=== PATIENT | male | born 1955 | race Caucasian/White ===

== ENCOUNTER 2016-05-22 12:38 | Emergency (ER) | payer BC ==
[2016-05-22 12:51] VITALS: BP 128/57
--- NOTE | 2016-05-22 14:13 | EDM.PDOC ---
ED HPI Trauma - General Chief Complaint: Lower Extremity Injury/Pain Stated Complaint: RT LEG SWELLING Time Seen by Provider: 05/22/16 12:52 Source: Reports: Patient, RN notes reviewed - History of Present Illness INITIAL COMMENTS - FREE TEXT/NARRATIVE: 6-year-old male comes in with right leg swelling. He's had this for the last few days. He does have history of fracture of the lower leg many years ago. He states it "healed crooked" so he then needed to have it "rebroken and a metal ana was inserted. Since that time the leg does swell intermittently but this has been worse than usual and more prolonged than usual. Unfortunately he also does have metastatic prostate cancer diagnosed a few years ago. He states that this is metastatic to nodes in his pelvis and also metastatic to bone. He visited with one of his specialty providers about the leg problem and was advised to come in for ultrasound the leg to rule out DVT. The leg has not been red or hot. He has no chest pain or difficulty breathing Allergies/ADRs: Allergies gabapentin [From Neurontin] Allergy (Verified 05/22/16 12:51) Other Home Medications: Ambulatory Orders Amino Ac/Whey Prot Con & Isol [Whey Protein Powder] 1 dose PO DAILY 05/22/16 [ Confirmed 05/22/16] Calcium Carb &Cit/Magnesium Ox [Calmag Thins Tablet] 1 each PO DAILY 05/22/16 [ Confirmed 05/22/16] Cholecalciferol (Vitamin D3) [Vitamin D3] 2,000 unit PO DAILY 05/22/16 [ Confirmed 05/22/16] Epamax 1 tab PO DAILY 05/22/16 [Confirmed 05/22/16] Fish Oil/Baring-3 Fatty Acids [Fish Oil] 1 each PO DAILY 05/22/16 [Confirmed 09/02] Flaxseed 2 tsp PO DAILY 05/22/16 [Confirmed 05/22/16] [place] 2 cap PO DAILY 05/22/16 [Confirmed 05/22/16] Melatonin 20 mg PO BEDTIME 05/22/16 [Confirmed 05/22/16] Ubidecarenone [Coq-10] 100 mg PO DAILY 05/22/16 [Confirmed 05/22/16] Vitamin B Complex [B Complex] 1 each PO DAILY 05/22/16 [Confirmed 05/22/16] Past Medical History HEENT History: Reports: Cataract Genitourinary History: Reports: Prostate disorder Immunologic History: Reports: Other (see below) Other Immunologic History: receives chemotherapy Oncologic (Cancer) History: Reports: Prostate - Past Surgical History HEENT Surgical History: Reports: Cataract surgery GI Surgical History: Reports: Hernia repair/other Male Surgical History: Reports: Prostate Biopsy, Other (see below) Other Male Surgeries/Procedures: prostate cancer treatment Social & Family History - Family History Family Medical History: Noncontributory - Tobacco Use Smoking Status *Q: Never Smoker - Caffeine Use Caffeine Use: Reports: None - Recreational Drug Use Recreational Drug Use: No Review of Systems - Review of Systems Review Of Systems: See Below Constitutional: Denies: chills, fever Eyes: Reports: no symptoms Mouth/Throat: Reports: no symptoms Respiratory: Denies: shortness of breath, pleuritic chest pain Cardiovascular: Reports: edema (right lower leg). Denies: chest pain, syncope GI/Abdominal: Denies: Nausea, Vomiting Musculoskeletal: Denies: leg pain Skin: Reports: no symptoms Neurological: Reports: no symptoms Trauma Exam - Physical Exam Exam: See Below General Appearance: Reports: alert, no apparent distress Head: Reports: atraumatic Throat/Mouth: Reports: Normal inspection, Normal oropharynx Neck: Reports: full range of motion Respiratory Exam: Reports: no respiratory distress, lungs clear, normal breath sounds Cardiovascular: Reports: regular rate, rhythm Extremities: Reports: pedal edema (mild to moderate edema of the right lower leg ), other (no warmth or erythema of the lower leg). Denies: bony-point tenderness, tenderness Skin: Reports: Normal color, Warm/dry Course - Vital Signs Last Recorded V/S: Last Vital Signs Temp 96.4 F 05/22/16 12:46 Pulse 53 L 05/22/16 12:46 Resp 18 05/22/16 12:46 BP 128/57 L 05/22/16 12:46 Pulse Ox 100 05/22/16 12:46 - Orders/Labs/Meds Orders: Active Orders 24 hr Category Date Time Status VL Duplex Lwr Ext Veins Ltd Rt [US] Stat Exams 05/22/16 13:10 Taken - Re-Assessments/Exams Free Text/Narrative Re-Assessment/Exam: 05/22/16 14:28 ultrasound the leg is negative for DVT Departure - Departure Time of Disposition: 14:11 Disposition: Home, Self-Care 01 Condition: fair Clinical Impression: Leg edema Qualifiers: Laterality: right Qualified Code(s): R60.0 - Localized edema Instructions: Edema, [id number] Referrals: Kelly Brody PA [Primary Care Provider] - Forms: ED Department Discharge Additional Instructions: The ultrasound of your leg today does not show any evidence for blood clot. elevates her legs as much as possible when not walking. Work your calf muscle as demonstrated every couple of hours while awake to help pump the fluid out of your leg toward your pelvis. See a medical provider immediately if you do start experiencing warmth, redness, pain or worsening swelling of your distal leg. - My Orders Last 24 Hours: My Active Orders 05/22/16 13:10 VL Duplex Lwr Ext Veins Ltd Rt [US] Stat - Assessment/Plan Last 24 Hours: My Active Orders 05/22/16 13:10 VL Duplex Lwr Ext Veins Ltd Rt [US] Stat
--- NOTE | 2016-05-22 14:42 | US ---
Right lower extremity deep venous ultrasound: Duplex and color flow imaging was obtained of the right common femoral, proximal greater saphenous, superficial femoral, popliteal, posterior tibial and peroneal veins. Findings: Subcutaneous edema seen within the calf. Normal phasic flow, augmentation and compression are seen. Evaluation of the left common femoral vein was also performed which appears patent. Impression: 1. Mild subcutaneous edema within the calf. 2. No evidence of deep venous thrombosis within the right lower extremity or within the left common femoral vein. Diagnostic code #2
== END 2016-05-22 14:24 | disposition home or self-care (01) ==
LOC: JD.ED 12:38
DX: R60.0 Localized edema (principal); Z88.8 Allergy status to other drugs, medicaments and biological substances; Z98.49 Cataract extraction status, unspecified eye
CPT/HCPCS: 93971-26-RT; 93971-RT; 99282; 99284-25

== ENCOUNTER 2017-01-21 03:42 | Emergency (ER) | payer BC ==
[2017-01-21 03:54] VITALS: BP 112/76
[2017-01-21] MEDS ORDERED: Acetaminophen/oxyCODONE 325-5 MG Tab PO ONE (04:09)
--- NOTE | 2017-01-21 04:10 | EDM.PDOC ---
ED HPI GENERAL MEDICAL PROBLEM - General Chief Complaint: Back Pain or Injury Stated Complaint: BACK PAIN Time Seen by Provider: 01/21/17 03:48 Source of Information: Reports: Patient History Limitations: Reports: No Limitations - History of Present Illness INITIAL COMMENTS - FREE TEXT/NARRATIVE: This is a 61-year-old male. He has a history of stage IV prostate cancer. Earlier this year he had some bone metastases to the spine and had severe spine pain requiring some Decadron as well as some radiation treatment. He noted on Sunday evening he started having some upper back pain in the thoracic spine and upper back. It is a constant pain that does not seem to change with movement. He thinks he might have this same process going on again. He is to follow-up with his doctor on Sunday already and possibly start chemotherapy this week. He is already on prednisone 5 mg a day. I spoke to him at length and indicated that x-rays probably won't tell us anything and if he wants to know for sure if there is a spot in his bone that might be pressing on a spine that he needs to get an MRI which is not available through the ER. We talked at length regarding what needs to be done in the future and he is opted to just get something for pain until he can see his doctor on Sunday. He'll allow his doctor to do the workup for this lower thoracic pain. Middle Back Pain Score (Numeric/FACES): 7 - Related Data Allergies Allergy/AdvReac Type Severity Reaction Status Date / Time gabapentin [From Neurontin] Allergy Other Verified 01/21/17 03:54 Home Meds: Home Meds oxyCODONE HCl/Acetaminophen [Percocet 5-325 mg Tablet] 1 - 2 each PO Q6H PRN # 12 tablet 01/21/17 [Rx] predniSONE [Prednisone] 5 mg PO DAILY 01/21/17 [History] Past Medical History HEENT History: Reports: Cataract Genitourinary History: Reports: Prostate Disorder Immunologic History: Reports: Other (See Below) Other Immunologic History: receives chemotherapy Oncologic (Cancer) History: Reports: Prostate - Past Surgical History HEENT Surgical History: Reports: Cataract Surgery GI Surgical History: Reports: Hernia Repair/Other Male Surgical History: Reports: Prostate Biopsy, Other (See Below) Social & Family History - Family History Family Medical History: Noncontributory - Tobacco Use Smoking Status *Q: Never Smoker - Caffeine Use Caffeine Use: Reports: None - Recreational Drug Use Recreational Drug Use: No ED ROS GENERAL - Review of Systems Review Of Systems: See Below Constitutional: Denies: Fever, Chills HEENT: Reports: No Symptoms Respiratory: Reports: No Symptoms Cardiovascular: Reports: No Symptoms Endocrine: Reports: No Symptoms GI/Abdominal: Reports: No Symptoms : Reports: Other (As per history of present illness) Musculoskeletal: Reports: Back Pain Skin: Reports: No Symptoms Neurological: Reports: No Symptoms Psychiatric: Reports: No Symptoms Hematologic/Lymphatic: Reports: No Symptoms ED EXAM, UPPER BACK/NECK PAIN - Physical Exam Exam: See Below Exam Limited By: No Limitations General Appearance: Alert, WD/WN, No Apparent Distress Eye Exam: Bilateral Eye: Normal Inspection Ears Exam: Normal External Exam Nose Exam: Normal Inspection Throat/Mouth Exam: Normal Lips, Normal Voice, No Airway Compromise Head Exam: Normocephalic Neck Exam: Non-Tender, Full Range of Motion Cardiovascular/Respiratory: No Respiratory Distress Back Exam: Other (Palpation of the lower thoracic midline spine is nontender, he does have some mild paraspinal muscle soreness noted on the right but is not really the pain that he seems to be experiencing, he does have good motion of his back with twisting as well as bending, no obvious abnormalities noted of his thoracic area) Extremities: Normal Inspection, Normal Range of Motion Neurologic: Alert, Normal Mood/Affect, Oriented x 3 Psychiatric: Normal Affect, Normal Mood Skin Exam: Normal Color, Warm/Dry Course - Vital Signs Last Recorded V/S: Last Vital Signs Temp 98.5 F 01/21/17 03:48 Pulse 82 01/21/17 03:48 Resp 18 01/21/17 03:48 BP 112/76 01/21/17 03:48 Pulse Ox 100 01/21/17 03:48 - Re-Assessments/Exams Free Text/Narrative Re-Assessment/Exam: 01/21/17 04:08 We have opted just to go with some pain medicine until he can follow-up with his family doctor and his specialist on Sunday. Departure - Departure Time of Disposition: 04:10 Disposition: Home, Self-Care 01 Condition: Fair Clinical Impression: Thoracic spine pain, Prostate cancer - Discharge Information Prescriptions: oxyCODONE HCl/Acetaminophen [Percocet 5-325 mg Tablet] 1 - 2 each PO Q6H PRN # 12 tablet PRN Reason: Pain Referrals: Kelly Brody PA [Primary Care Provider] - Additional Instructions: Follow-up with your specialist on Sunday as scheduled, take the Percocet as needed for pain and your back, have them evaluate your back and see if you need another MRI to determine was going on with your pain, return to the ER if needed
== END 2017-01-21 04:26 | disposition home or self-care (01) ==
LOC: JD.ED 03:42
DX: M54.6 Pain in thoracic spine (principal); C61 Malignant neoplasm of prostate; Z88.8 Allergy status to other drugs, medicaments and biological substances; Z79.899 Other long term (current) drug therapy
CPT/HCPCS: 99283; A9270

== ENCOUNTER 2017-03-20 19:41 | Observation (INO) | payer BC ==
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
[2017-03-20] MEDS ORDERED: Potassium Chloride 20 MEQ Tab.ER PO ONE (21:35)
[2017-03-20] MEDS ORDERED: Ondansetron 4 MG Tab.DIS PO ONE (21:36)
[2017-03-20] MEDS ORDERED: NS + KCl 20mEq/L 1,000 ML IV SCH (23:45)
[2017-03-20] MEDS ORDERED: Temazepam 15 MG Cap PO PRN (23:58)
[2017-03-20] MEDS ORDERED: Ondansetron 4 MG Tab.DIS PO PRN (23:58)
[2017-03-20] MEDS ORDERED: Acetaminophen 325 MG Tab PO PRN (23:58)
[2017-03-21] MEDS ORDERED: Magnesium Sulfate/Water 2 GM in Premix Bag 1 BAG IV ONE (00:11)
[2017-03-21] MEDS: Potassium Chloride 20 MEQ Tab.ER PO SCH ×2 (00:57→09:43)
[2017-03-21] MEDS ORDERED: Ondansetron 4 MG Tab.DIS PO PRN (06:33)
[2017-03-21] MEDS ORDERED: traMADol 50 MG Tab PO SCH (06:45)
[2017-03-21] MEDS ORDERED: traMADol 50 MG Tab PO PRN (07:49)
[2017-03-21] MEDS ORDERED: [UNRECOGNIZED DRUG - OTHER] PO SCH (09:00)
[2017-03-21] MEDS ORDERED: CALCIUM CARB PO SCH (09:00)
[2017-03-21] MEDS ORDERED: Enoxaparin 40 MG/0.4 ML Syringe SUBCUT SCH (09:00)
[2017-03-21] MEDS ORDERED: [UNRECOGNIZED DRUG - OTHER] PO SCH (09:00)
[2017-03-21] MEDS ORDERED: COENZYME Q PO SCH (09:00)
--- NOTE | 2017-03-21 09:15 | CR ---
Chest: Two views of the chest were obtained. Comparison: No previous chest x-ray, previous chest CT of 05/25/10 is available. Heart size and mediastinum are within normal limits. Lungs are clear. Bony structures appear within normal limits for the patient's age. Impression: 1. Nothing acute is identified on two-view chest x-ray. Diagnostic code #1
[2017-03-21] MEDS: Atropine/Diphenoxylate 0.025-2.5 MG Tab PO SCH ×2 (11:04→12:46)
[2017-03-21] MEDS ORDERED: Potassium Chloride 20 MEQ Tab.ER PO ONE (12:00)
[2017-03-21 12:09] VITALS: BP 90/49
--- NOTE | 2017-03-21 14:44 | PCM.DCSUM1 ---
Discharge Summary - Hospital Course Free Text/Narrative:: The patient has a history of stage IV prostate cancer, originally diagnosed in May 2010. He is status post numerous chemotherapy regimens, administered at the [facility] in [place], [place]. He states that his most recent treatment was a dose of Opdivo this past , 03/15/2017. The patient states that he had an episode of nausea and emesis, along with chills, on 03/16/2017. He states that he developed chills this afternoon. He went to bed, bundled up in his jacket, and slept. When he woke, he checked his temperature, and found it to be 108. After he on-blanket it, he rechecked his temperature and found it to be 101.8, around 19:30. He denies having a recent cough, chest pain, palpitations, or dyspnea. He states that he did have some dysuria today. He had been experiencing watery diarrhea for the past 3 or 4 weeks, along with the feeling of the need to have a bowel movement, and decreased appetite. He reports having a dry mouth since July 2016. No prior similar symptoms. The patient did not take an antipyretic. Here in the ED, his temperature is found to be 99.3, and he states that he feels slightly chilled. The patient's PCP is Kelly Brody. - Discharge Data Discharge Date: 03/21/17 (admit date 03/20/16) Discharge Disposition: Home, Self-Care 01 Condition: Good - Discharge Diagnosis/Problem(s) (1) Hypokalemia SNOMED Code(s): 77865588 ICD Code: E87.6 - HYPOKALEMIA Status: Acute Priority: High Current Visit: Yes (2) Diarrhea SNOMED Code(s): 13810787 ICD Code: R19.7 - DIARRHEA, UNSPECIFIED Status: Acute Priority: High Current Visit: Yes Qualifiers: Diarrhea type: unspecified type Qualified Code(s): R19.7 - Diarrhea, unspecified (3) Prostate cancer SNOMED Code(s): 643302441 ICD Code: C61 - MALIGNANT NEOPLASM OF PROSTATE Status: Chronic Priority: Medium Current Visit: No - Patient Summary/Data Operative Procedure(s) Performed: None Complications: None Consults: None Labs Pending at D/C: None Recommended Follow-up Testing/Procedures: Recheck labs- potassium and magnesium on 03/22/16-- with results to PCP, Kelly Samples Lomotil if needed for diarrhea Recommend increase potassium for 2-3 days, take twice daily then back to once daily. Push fluids Follow up with PCP, Kelly Samples or SARTHAK Middleton early next week for recheck. Planned Operative Procedure(s) after DC: None Hospital Course: Patient was admitted for hypokalemia assoicated with frequent diarrhea stools last evening from ED. He has metastatic prostate cancer - Patient Instructions Diet: Usual Diet as Tolerated, Drink 8-10+ Glasses/Day Activity: As Tolerated Showering/Bathing: May Shower Notify Provider of: Fever, Increased Pain, Nausea and/or Vomiting - Discharge Plan Home Medications: Home Meds Atropine/Diphenoxylate [Lomotil 0.025-2.5 MG] 1 tab PO QID 03/20/17 [History] Calcium Carb/Magnesium Cmb #10 [Kiran-Mag] 2 each PO BID 03/20/17 [History] Cholecalciferol (Vitamin D3) [Vitamin D3] 2,000 unit PO DAILY 03/20/17 [History] Nivloumab 1 dose IV ASDIRECTED 03/20/17 [History] Ondansetron [Zofran ODT] 4 mg PO Q8H PRN 03/20/17 [History] Potassium Chloride [Klor-Con M20] 20 meq PO DAILY 03/20/17 [History] Prostate Care 2 tab PO BID 03/20/17 [History] Ubidecarenone [Coq-10] 1 cap PO DAILY 03/20/17 [History] traMADol [Ultram] 50 mg PO Q6H 03/20/17 [History] Patient Handouts: Diarrhea, Adult, Hypokalemia Referrals: Hayley Billy NP [ED Midlevel Provider] - 03/28/17 9:00 am (Please follow-up with Dr. Hayley Billy on Sunday, March 28 at 900am. ) - Discharge Summary/Plan Comment DC Time >30 min.: Yes (40 min) - General Info Date of Service: 03/21/17 Admission Dx/Problem (Free Text: Hypokalemia; diarrhea Functional Status: Reports: Pain Controlled, Tolerating Diet, Ambulating, Urinating. Denies: New Symptoms - Review of Systems General: Reports: No Symptoms. Denies: Fever, Weakness, Fatigue HEENT: Reports: No Symptoms Pulmonary: Reports: No Symptoms. Denies: Shortness of Breath, Cough Cardiovascular: Reports: No Symptoms. Denies: Chest Pain, Dyspnea on Exertion Gastrointestinal: Reports: No Symptoms, Diarrhea (2 diarrhea stools since admit one at 4am, one at 1330. Frequency is "much less"). Denies: Abdominal Pain Genitourinary: Reports: No Symptoms Musculoskeletal: Reports: No Symptoms Skin: Reports: No Symptoms Neurological: Reports: No Symptoms Psychiatric: Reports: No Symptoms - Patient Data Vitals - Most Recent: Last Vital Signs Temp 99.3 F 03/21/17 12:06 Pulse 59 L 03/21/17 12:06 Resp 20 03/21/17 12:06 BP 90/49 L 03/21/17 12:06 Pulse Ox 93 L 03/21/17 12:06 Weight - Most Recent: 150 lb 1.6 oz I&O - Last 24 hours: Intake & Output 03/20/17 03/21/17 03/21/17 22:59 06:59 14:59 Intake Total 912 738 Output Total 1999 Balance -1088 738 Lab Results - Last 24 hrs: Laboratory Results - last 24 hr 03/21/17 03/21/17 03/21/17 Range/Units 06:10 06:10 10:46 WBC 2.77 L (4.23-9.07) K/mm3 RBC 3.18 L (4.63-6.08) M/mm3 Hgb 10.3 L (13.7-17.5) gm/L Hct 29.6 L (40.1-51.0) % MCV 93.1 H (79.0-92.2) fl MCH 32.4 H (25.7-32.2) pg MCHC 34.8 (32.2-35.5) g/dl RDW Std Deviation 45.4 H (35.1-43.9) fL Plt Count 182 (163-337) K/mm3 MPV 8.0 L (9.4-12.3) fl Neut % (Auto) 75.5 H (34.0-67.9) % Lymph % (Auto) 9.4 L (21.8-53.1) % [place] % (Auto) 13.7 H (5.3-12.2) % Eos % (Auto) 0.7 L (0.8-7.0) Baso % (Auto) 0.7 (0.1-1.2) % Neut # (Auto) 2.09 (1.78-5.38) K/mm3 Lymph # (Auto) 0.26 L (1.32-3.57) K/mm3 [place] # (Auto) 0.38 (0.30-0.82) K/mm3 Eos # (Auto) 0.02 L (0.04-0.54) K/mm3 Baso # (Auto) 0.02 (0.01-0.08) K/mm3 Manual Slide Review Abnormal smear Sodium 141 (136-145) mEq/L Potassium 3.1 L (3.5-5.1) mEq/L Chloride 103 (98-107) mEq/L Carbon Dioxide 29 (21-32) mEq/L Anion Gap 12.1 (5-15) BUN 6 L (7-18) mg/dL Creatinine 0.8 (0.7-1.3) mg/dL Est Cr Clr Drug Dosing 93.38 mL/min Estimated GFR (MDRD) > 60 (>60) mL/min BUN/Creatinine Ratio 7.5 L (14-18) Glucose 104 (80-115) mg/dL Calcium 8.1 L (8.5-10.1) mg/dL Magnesium 2.2 (1.8-2.4) mg/dl C-Reactive Protein 4.7 H* (<1.0) mg/dL C.difficile [id number] Presumptive negative C. difficile Tox (PCR) Negative K[facility] Results - Last 24 hrs: Microbiology 03/21/17 10:46 Stool for WBCs - Final Stool / Feces Med Orders - Current: Current Medications Acetaminophen (Tylenol) 650 mg PO Q6H PRN PRN Reason: Pain Diphenoxylate HCl/Atropine (Lomotil 0.025-2.5 Mg) 1 tab PO QID [facility] Last Admin: 03/21/17 12:46 Dose: 1 tab Enoxaparin Sodium (Lovenox) 40 mg SUBCUT DAILY [facility] Last Admin: 01/03/18 09:45 Dose: 40 mg Ondansetron HCl (Zofran Odt) 4 mg PO Q8H PRN PRN Reason: Nausea/Vomiting Ptom - Calcium Carb/ (Magnesium Combo #10) 2 each PO BID [facility] Last Admin: 03/21/17 09:47 Dose: Not Given Nivloumab 1 Dose ( (Opdivo Injection)) 0 each .XX ASDIRECTED [facility] Ptom - Prostate Care 2 each PO BID [facility] Last Admin: 03/21/17 09:47 Dose: Not Given Ptom - Coenzyme Q (100mg) 1 each PO DAILY [facility] Last Admin: 03/21/17 09:47 Dose: Not Given Potassium Chloride (Klor-Con M20) 60 meq PO BID [facility] Last Admin: 03/21/17 09:43 Dose: 60 meq Temazepam (Restoril) 15 mg PO BEDTIME PRN PRN Reason: Sleep Tramadol HCl (Ultram) 50 mg PO Q6H PRN PRN Reason: Pain Discontinued Medications Potassium Chloride/Sodium Chloride (Normal Saline With 20 Meq Kcl) 1,000 mls @ 100 mls/hr IV ASDIRECTED [facility] Last Admin: 03/21/17 00:55 Dose: 100 mls/hr Magnesium Sulfate 2 gm/ Premix 50 mls @ 25 mls/hr IV ONETIME ONE Stop: 03/21/17 02:10 Last Admin: 03/21/17 00:56 Dose: 25 mls/hr Ondansetron HCl (Zofran Odt) 4 mg PO ONETIME ONE Stop: 03/20/17 21:37 Last Admin: 03/20/17 21:46 Dose: 4 mg Ondansetron HCl (Zofran Odt) 4 mg PO Q8H PRN PRN Reason: Nausea Potassium Chloride (Klor-Con M20) 40 meq PO ONETIME ONE Stop: 03/20/17 21:36 Last Admin: 03/20/17 21:46 Dose: 40 meq Potassium Chloride (Klor-Con M20) 40 meq PO ONETIME ONE Stop: 03/21/17 12:01 Last Admin: 03/21/17 12:45 Dose: 40 meq Tramadol HCl (Ultram) 50 mg PO Q6H [facility] - Exam Quality Assessment: Reports: DVT Prophylaxis General: Reports: Alert, Oriented, Cooperative, No Acute Distress HEENT: Reports: Pupils Equal, EOMI, Mucous Membr. Moist/[place] Neck: Reports: Supple Lungs: Reports: Clear to Auscultation, Normal Respiratory Effort Cardiovascular: Reports: Regular Rate, Regular Rhythm GI/Abdominal Exam: Normal Bowel Sounds, Soft, Non-Tender (Male) Exam: Deferred Rectal (Males) Exam: Deferred Back Exam: Reports: Normal Inspection Extremities: Normal Inspection, No Pedal Edema, Normal Capillary Refill Neurological: Reports: No New Focal Deficit Psy/Mental Status: Reports: Alert, Normal Affect, Normal Mood *Q Meaningful Use (DIS) - VTE *Q VTE Criteria *Q: - Stroke *Q Stroke Criteria *Q: - AMI *Q AMI Criteria *Q:
[2017-03-29] MEDS ORDERED: NIVOLUMAB SCH (12:00)
== END 2017-03-21 14:08 | disposition home or self-care (01) ==
LOC: JD.ED 19:41 → JD.MS 22:48
PROVIDERS: ADMIT Internal Medicine Cardiovascular Disease; ATTEND Internal Medicine Cardiovascular Disease
DX: E87.6 Hypokalemia (principal); R19.7 Diarrhea, unspecified; Z79.899 Other long term (current) drug therapy; Z85.46 Personal history of malignant neoplasm of prostate; Z92.21 Personal history of antineoplastic chemotherapy
CPT/HCPCS: 36415; 71046; 80048; 80053; 81001; 83630; 83735; 85025; 86140; 87040; 87046; 87493; 87804; 89055; 93005; 96361; 96365; 96366; 96372; 99285; A9270; G0378; J1650; J3480; 87427; 99284; J3475

== ENCOUNTER 2017-04-23 10:12 | Emergency (ER) | payer BC ==
[2017-04-23 10:22] VITALS: BP 126/67
[2017-04-23] MEDS ORDERED: Sodium Chloride 0.9% 1,000 ML IV SCH (10:30)
--- NOTE | 2017-04-23 10:32 | EDM.PDOC ---
ED HPI GENERAL MEDICAL PROBLEM - General Chief Complaint: Respiratory Problem Stated Complaint: POSS PE Time Seen by Provider: 04/23/17 10:29 Source of Information: Reports: Patient History Limitations: Reports: No Limitations - History of Present Illness INITIAL COMMENTS - FREE TEXT/NARRATIVE: 61-year-old male presents to the ED after he presented to the walk-in clinic complaining of shortness of breath and chest heaviness. Patient developed central chest discomfort will seated in his easy chair 2 nights ago. He states it seemed to start in his right lower quadrant of his chest and move up into across the central chest. Described as a heaviness/pressure. Associated feeling of shortness of breath. No pleuritic chest pain no cough no sputum production no fever no chills. He states yesterday he felt it still present no worse than it was the night before but it hasn't gone away either. He was therefore advised to see his primary care physician or rule out a pulmonary embolism as he has known metastatic prostate cancer and is at high risk for clotting. He has no pain in his calves or legs. No previous DVTs. 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 Is supposed to have these biopsied if we can find a surgeon willing to do the procedure. Otherwise he's been receiving his care in [place] at the [facility]. He has been on numerous experimental medications for prostate cancer. Most of them have been highly successful in reducing this tumor load. However due to side effects and elevated liver enzymes he was off medication and the tumors have doubled in size since that time. Note initial diagnosis of prostate cancer was in 2010. At present he has a poor appetite. No diarrhea no nausea or vomiting. Onset: Sudden Onset Date: 04/21/17 (First noticed it Sunday evening while he was in his easy chair. He thought it was just the way he had been sleeping. See history of present illness) Duration: Hour(s): Location: Reports: Chest (Central chest discomfort heaviness. Associated with shortness of breath) Quality: Reports: Ache, Pressure Severity: Moderate Improves with: Reports: None Worsens with: Reports: Other (Not necessarily worse with movement.) Context: Denies: Activity, Exercise, Lifting, Sick Contact, Trauma, Other Chest Pain Score (Numeric/FACES): 2 - Related Data Allergies Allergy/AdvReac Type Severity Reaction Status Date / Time gabapentin [From Neurontin] Allergy Other Verified 04/23/17 10:22 Home Meds: Home Meds Calcium Carb/Magnesium Cmb #10 [Kiran-Mag] 2 each PO BID 03/20/17 [History] Cholecalciferol (Vitamin D3) [Vitamin D3] 2,000 unit PO DAILY 03/20/17 [History] Nivloumab 1 dose IV ASDIRECTED 03/20/17 [History] Ubidecarenone [Coq-10] 1 cap PO DAILY 03/20/17 [History] Past Medical History HEENT History: Reports: Cataract Cardiovascular History: Reports: High Cholesterol Genitourinary History: Reports: Prostate Disorder Immunologic History: Reports: Other (See Below) Other Immunologic History: receives chemotherapy Oncologic (Cancer) History: Reports: Prostate Other Oncologic History: with mets to bones, nodes, adrenal glands and liver - Infectious Disease History Infectious Disease History: Reports: Chicken Pox, Measles, Mumps - Past Surgical History HEENT Surgical History: Reports: Cataract Surgery GI Surgical History: Reports: Hernia, Inguinal Other GI Surgeries/Procedures: 2 repaired- one in 3rd grade and the 2nd in 1999 Male Surgical History: Reports: Prostate Biopsy, Vasectomy Musculoskeletal Surgical History: Reports: ORIF Other Musculoskeletal Surgeries/Procedures:: RLE- smashed [id number] tib/fib fx. Oncologic Surgical History: Reports: None Social & Family History - Family History Family Medical History: Noncontributory - Tobacco Use Smoking Status *Q: Never Smoker Second Hand Smoke Exposure: No - Caffeine Use Caffeine Use: Reports: Soda - Recreational Drug Use Recreational Drug Use: No - Living Situation & Occupation Living situation: Reports: Occupation: Employed ED ROS GENERAL - Review of Systems Review Of Systems: See Below Constitutional: Reports: Malaise, Weakness, Fatigue, Decreased Appetite, Weight Loss. Denies: Fever, Chills HEENT: Reports: Other (Has developed swelling in his right lateral neck over the last week. Ultrasound confirmed these to be enlarged lymph nodes suspicious for prostate cancer invading the nodes.) Respiratory: Reports: Shortness of Breath, Other. Denies: Wheezing, Pleuritic Chest Pain, Cough, Sputum Cardiovascular: Reports: Chest Pain (Some central chest pressure discomfort central chest pressure discomfort), Dyspnea on Exertion (Trace in his legs at times.), Edema. Denies: Blood Pressure Problem, Claudication, Lightheadedness ( Mild last day or 2), Orthopnea, Palpitations Endocrine: Reports: Fatigue GI/Abdominal: Reports: Decreased Appetite, Nausea. Denies: Difficulty Swallowing, Distension, Flatus, Hematemesis, Hematochezia, Mucous in Stool, Stool Incontinence, Vomiting (Occasionally.) : Reports: No Symptoms Musculoskeletal: Reports: Other (Has pain in his bones at times due to multiple bony metastatic disease.) Skin: Reports: Pallor (Mild anemia chronically.) Neurological: Reports: No Symptoms. Denies: Dizziness, Headache, Pre-Existing Deficit, Seizure, Syncope, Trouble Speaking, Difficulty Walking Psychiatric: Reports: No Symptoms Hematologic/Lymphatic: Reports: No Symptoms Immunologic: Reports: No Symptoms ED EXAM, GENERAL - Physical Exam Exam: See Below Exam Limited By: No Limitations General Appearance: Alert, WD/WN, No Apparent Distress Eye Exam: Bilateral Eye: Normal Inspection Throat/Mouth: Normal Inspection, Normal Lips, Normal Teeth Head: Atraumatic, Normocephalic Neck: Normal Inspection, Supple, Non-Tender, Full Range of Motion, Other (Has lymphadenopathy right posterior chain on his neck diagnosed a week ago. Ultrasound confirmed enlarged lymph nodes. He is searching for a surgeon to do biopsy of one of these nodes to confirm whether or not it contained prostate cancer as it will change his treatment protocols.). No: Lymphadenopathy (R) Respiratory/Chest: No Respiratory Distress, Lungs Clear, Normal Breath Sounds, No Accessory Muscle Use, Chest Non-Tender. No: Rales, Rhonchi, Wheezing Cardiovascular: Normal Peripheral Pulses, Regular Rate, Rhythm, No Gallop, No Murmur, No Rub, Other (Trace edema in lower extremities at the ankles.) Peripheral Pulses: 2+: Posterior Tibial (L), Posterior Tibial (R), Dorsalis Pedis (L), Dorsalis Pedis (R) GI/Abdominal: Soft, Non-Tender, No Organomegaly, Other (No abdominal wall masses identified.) Back Exam: Normal Inspection, Full Range of Motion. No: CVA Tenderness (L), CVA Tenderness (R) Extremities: Normal Inspection, Normal Range of Motion, Non-Tender, No Pedal Edema, Pedal Edema Neurological: Alert (Trace edema at the ankles.), Oriented, CN II-XII Intact, Normal Cognition, Normal Gait Psychiatric: Normal Affect, Normal Mood Skin Exam: Warm, Dry, Intact, Normal Color, Pallor (Slight pallor.) EKG INTERPRETATION EKG Date: 04/23/17 Time: 11:10 Rhythm: NSR Rate (Beats/Min): 67 [place]: Normal P-Wave: Present QRS: Other (Early R-wave transition.) ST-T: Other (Diffuse early repolarization abnormality.) QT: Prolonged (Mildly prolonged) EKG Interpretation Comments: Borderline ECG Course - Vital Signs Last Recorded V/S: Last Vital Signs Temp 36.1 C 04/23/17 10:19 Pulse 70 04/23/17 10:19 Resp 16 04/23/17 10:19 BP 126/67 04/23/17 10:19 Pulse Ox 100 04/23/17 10:19 - Orders/Labs/Meds Labs: Laboratory Tests 04/23/17 04/23/17 04/23/17 Range/Units 10:55 10:55 10:55 WBC 3.80 L (4.23-9.07) K/mm3 RBC 3.57 L (4.63-6.08) M/mm3 Hgb 11.3 L (13.7-17.5) gm/L Hct 33.4 L (40.1-51.0) % MCV 93.6 H (79.0-92.2) fl MCH 31.7 (25.7-32.2) pg MCHC 33.8 (32.2-35.5) g/dl RDW Std Deviation 46.5 H (35.1-43.9) fL Plt Count 262 (163-337) K/mm3 MPV 8.1 L (9.4-12.3) fl Neutrophils % (Manual) 74 H (40-60) % Band Neutrophils % 0 (0-10) % Lymphocytes % (Manual) 23 (20-40) % Atypical Lymphs % 0 % Monocytes % (Manual) 0 L (2-10) % Eosinophils % (Manual) 2 (0.8-7.0) % Basophils % (Manual) 1 (0.2-1.2) Platelet Estimate Adequate RBC Morph Comment Normal PT 10.0 (8.0-13.0) SECONDS INR 0.92 D-Dimer, Quantitative 25.23 H (0.19-0.59) mg/L Sodium (136-145) mEq/L Potassium (3.5-5.1) mEq/L Chloride (98-107) mEq/L Carbon Dioxide (21-32) mEq/L Anion Gap (5-15) BUN (7-18) mg/dL Creatinine (0.7-1.3) mg/dL Est Cr Clr Drug Dosing mL/min Estimated GFR (MDRD) (>60) mL/min BUN/Creatinine Ratio (14-18) Glucose (80-115) mg/dL Calcium (8.5-10.1) mg/dL Magnesium (1.8-2.4) mg/dl Total Bilirubin (0.2-1.0) mg/dL AST (15-37) U/L ALT (16-63) U/L Alkaline Phosphatase (46-116) U/L CK-MB (CK-2) (0-3.6) ng/ml Troponin I (0.00-0.056) ng/mL C-Reactive Protein (<1.0) mg/dL NT-Pro-B Natriuret Pep (0-125) pg/mL Total Protein (6.4-8.2) g/dl Albumin (3.4-5.0) g/dl Globulin gm/dL Albumin/Globulin Ratio (1-2) Urine Color (Yellow) Urine Appearance (Clear) Urine pH (5.0-8.0) Ur Specific Pearl (1.005-1.030) Urine Protein (Negative) Urine Glucose (UA) (Negative) Urine Ketones (Negative) Urine Occult Blood (Negative) Urine Nitrite (Negative) Urine Bilirubin (Negative) Urine Urobilinogen (0.2-1.0) Ur Leukocyte Esterase (Negative) Urine RBC (0-5) /hpf Urine WBC (0-5) /hpf Ur Epithelial Cells (0-5) /hpf Urine Bacteria (FEW) /hpf Urine Mucus (FEW) /hpf 04/23/17 04/23/17 04/23/17 Range/Units 11:22 11:22 12:25 WBC (4.23-9.07) K/mm3 RBC (4.63-6.08) M/mm3 Hgb (13.7-17.5) gm/L Hct (40.1-51.0) % MCV (79.0-92.2) fl MCH (25.7-32.2) pg MCHC (32.2-35.5) g/dl RDW Std Deviation (35.1-43.9) fL Plt Count (163-337) K/mm3 MPV (9.4-12.3) fl Neutrophils % (Manual) (40-60) % Band Neutrophils % (0-10) % Lymphocytes % (Manual) (20-40) % Atypical Lymphs % % Monocytes % (Manual) (2-10) % Eosinophils % (Manual) (0.8-7.0) % Basophils % (Manual) (0.2-1.2) Platelet Estimate RBC Morph Comment PT (8.0-13.0) SECONDS INR D-Dimer, Quantitative (0.19-0.59) mg/L Sodium 135 L (136-145) mEq/L Potassium 3.8 (3.5-5.1) mEq/L Chloride 102 (98-107) mEq/L Carbon Dioxide 27 (21-32) mEq/L Anion Gap 9.8 (5-15) BUN 9 (7-18) mg/dL Creatinine 0.6 L (0.7-1.3) mg/dL Est Cr Clr Drug Dosing 125.08 mL/min Estimated GFR (MDRD) > 60 (>60) mL/min BUN/Creatinine Ratio 15.0 (14-18) Glucose 91 (80-115) mg/dL Calcium 9.0 (8.5-10.1) mg/dL Magnesium 2.0 (1.8-2.4) mg/dl Total Bilirubin 0.4 (0.2-1.0) mg/dL AST 38 H (15-37) U/L ALT 19 (16-63) U/L Alkaline Phosphatase 69 (46-116) U/L CK-MB (CK-2) 0.6 (0-3.6) ng/ml Troponin I < 0.017 (0.00-0.056) ng/mL C-Reactive Protein 6.4 H* (<1.0) mg/dL NT-Pro-B Natriuret Pep 183 H (0-125) pg/mL Total Protein 7.3 (6.4-8.2) g/dl Albumin 2.7 L (3.4-5.0) g/dl Globulin 4.6 gm/dL Albumin/Globulin Ratio 0.6 L (1-2) Urine Color Yellow (Yellow) Urine Appearance Clear (Clear) Urine pH 6.0 (5.0-8.0) Ur Specific Pearl 1.010 (1.005-1.030) Urine Protein Negative (Negative) Urine Glucose (UA) Negative (Negative) Urine Ketones Negative (Negative) Urine Occult Blood Trace-intact H (Negative) Urine Nitrite Negative (Negative) Urine Bilirubin Negative (Negative) Urine Urobilinogen 0.2 (0.2-1.0) Ur Leukocyte Esterase Negative (Negative) Urine RBC 0-5 (0-5) /hpf Urine WBC 0-5 (0-5) /hpf Ur Epithelial Cells 0-5 (0-5) /hpf Urine Bacteria Not seen (FEW) /hpf Urine Mucus Not seen (FEW) /hpf Meds: Medications Discontinued Medications Generic Name Dose Route Start Last Admin Trade Name Freq PRN Reason Stop Dose Admin Sodium Chloride 1,000 mls @ 100 mls/hr 04/23/17 10:30 04/23/17 10:57 Normal Saline IV 100 mls/hr ASDIRECTED BRANDON Administration Sodium Chloride 100 mls @ 60 mls/hr 04/23/17 12:30 04/23/17 12:33 Normal Saline IV 60 mls/hr ASDIRECTED BRANDON Administration Iopamidol 100 ml 04/23/17 12:25 04/23/17 12:32 [id number] (76%) IVPUSH 04/23/17 12:26 100 ml ONETIME ONE Administration Sodium Chloride 10 ml 04/23/17 12:25 04/23/17 12:32 Saline Flush FLUSH 04/23/17 12:26 10 ml ONETIME ONE Administration - Radiology Interpretation Free Text/Narrative:: 61-year-old male with known diffuse metastatic prostate cancer presents to the ED with shortness of breath and a heaviness central chest for the last 2 days. Started last evening and is present again this morning. No associated cough fever chills or hemoptysis. There is no pleuritic chest pain. He is at high risk therefore for pulmonary embolism. His O2 sats are 98-100% which would be gauge this diagnosis. I will be for routine labs to be done including a d-dimer assay which will be positive are elevated due to his prostate cancer. - Re-Assessments/Exams Free Text/Narrative Re-Assessment/Exam: 04/23/17 12:17 White count is 3.80 with 74% neutrophils and no bands. Hemoglobin is slightly low 11.3 with hematocrit of 33.4. Platelet count is 262, 000. MCV is slightly elevated at 93.6. PT is 10.0 with an INR of 0.92. D-dimer is markedly elevated at 25.23. Sodium is slightly low at 135. Potassium 3.8. Platelet 102 with a bicarbonate 27. And a gap is 9.8. B1 is 9 with a creatinine of 0.6. EGFR is greater than 60. Glucose is 91 calcium 9.0 magnesium 2.0. Bilirubin is 0.4 AST mildly elevated at 38. ALT is 19. Alk phosphatase normal at 69. CK-MB fraction is 0.6 with troponin I of less than 0.017. C-reactive protein is elevated at 6.4. BNP is 183. Total protein is 7.3 with an albumin fraction low at 2.7. Therefore his kidney function is good enough to tolerate CT pulmonary angiogram and with a markedly elevated d-dimer 25.23 and his clinical history he will have a CT pulmonary and gram performed. 04/23/17 13:16 CT chest / pulmonary angiogram protocol has been completed. Pulmonary arteries are well opacified with no filling defects evident to indicate pulmonary embolism. The mediastinum and hilar regions show no adenopathy or masses. There is no pericardial thickening. Upper abdomen shows bilateral adrenal masses this is an interval change from previous exam .Lungs are clear incidental dependent atelectasis is seen posteriorly. 04/23/17 14:34 I will speak with the interventional radiology at [facility] to see if I can set up one of the fellow's to biopsy one of these lymph nodes in his neck by core biopsy under local anesthetic. I have a call into the coordinator but he is yet to call me back. The meantime I'm going to let Mr. Plummer home. I can always call him later with a date and time to attend [place] for procedure. Departure - Departure Time of Disposition: 14:36 Disposition: Home, Self-Care 01 Condition: Fair Clinical Impression: Atypical chest pain, Non-cardiac chest pain, Cervical lymphadenopathy - Discharge Information Instructions: Nonspecific Chest Pain Referrals: Hayley Billy SOFTWARE TEST MANAGER [Primary Care Provider] - Forms: ED Department Discharge Additional Instructions: Evaluation in the emergency room today was carried out due to presentation to clinic with central chest discomfort. Primary care provider recognizes high risk for pulmonary embolism due to known prostate cancer with metastatic disease. You're therefore sent to the ED for complete evaluation in this regard. Lab tests reveal that you're mildly anemic with a hemoglobin of 11.3. Your d-dimer which is a measuring stick for clotting going on within the body is elevated at 25.2. Therefore a CT pulmonary and gram was done of the chest to rule out blood clot in the lungs and no clots were identified. In fact no abnormalities were identified within the chest at all in terms of lymph node involvement or rib obviously involved with cancer. There is noted swelling of the adrenal glands on both sides which apparently is an interval change from prior CT of the chest. This is a common place for cancer to metastasize to. The second problem of course is the 3 lymph nodes identified along the right posterior sternocleidomastoid muscle in your right neck that popped up last week. They are confirmed by ultrasound. Biopsy is required and I'm trying to set up a interventional radiologist in [place] at [facility] to see you with a view to providing a core biopsy of one of these lymph nodes or more and then confirming diagnosis of possible prostate cancer spread to these nodes. Once I hear from them I will give you a call back with the date and time for you to attend their clinic for this outpatient procedure. Otherwise at this time no changes to medications are to be made.
--- NOTE | 2017-04-23 11:43 | CR ---
Chest: Two views of the chest were obtained. Comparison: Prior chest x-ray of 03/20/17. Heart size is normal. Mild tortuosity of the thoracic aorta is seen. Lungs are clear with no acute pulmonary densities. Bony structures are unremarkable. Impression: 1. Nothing acute is identified on two-view chest x-ray. Diagnostic code #2
[2017-04-23] MEDS ORDERED: Iopamidol 755 Mg/ML 100 ML Bottle IVPUSH ONE (12:25)
[2017-04-23] MEDS ORDERED: Sodium Chloride 0.9% 10 ML Syringe FLUSH ONE (12:25)
[2017-04-23] MEDS ORDERED: Sodium Chloride 0.9% 100 ML IV SCH (12:30)
--- NOTE | 2017-04-23 12:58 | CT ---
CT chest Technique: Multiple axial sections through the chest were obtained. Intravenous contrast was utilized. Study has been performed as a pulmonary angiogram protocol. Comparison: Prior chest CT of 05/25/10. Findings: Pulmonary arteries are well-opacified. No filling defects are seen to indicate pulmonary embolism. Mediastinum and hilar regions show no adenopathy or mass. No pericardial thickening is seen. Upper abdomen shows bilateral adrenal masses. This is an interval change from previous exam. Lungs are clear. Incidental dependent atelectasis is seen posteriorly. Impression: 1. Bilateral adrenal masses. This is an interval change from prior chest CT. Abdominal and pelvic CT recommended to further evaluate which should include both IV and oral contrast. 2. No findings of pulmonary embolism. Other portions of the CT exam of the chest are within normal limits. Diagnostic code #9
== END 2017-04-23 14:46 | disposition home or self-care (01) ==
LOC: JD.ED 10:12
DX: R07.89 Other chest pain (principal); R59.0 Localized enlarged lymph nodes; E78.00 Pure hypercholesterolemia, unspecified; Z88.8 Allergy status to other drugs, medicaments and biological substances; Z79.899 Other long term (current) drug therapy
CPT/HCPCS: 36415; 71046; 71275; 80053; 81001; 82553; 83735; 83880; 84484; 85025; 85379; 85610; 86140; 96360; 96361; 99285; J7030; J7040; J7050; Q9967; 93010